=== PATIENT | female | born 1945 | race Caucasian/White ===

== ENCOUNTER → 2017-01-09 | Outpatient (CLI) | payer MEDICARE, MEDICAID ==
[~2017-01-09] MED LIST: ALBU8.5H3 INH; ASPI-496 PO; ATEN1TAB3 PO; BUPR100T8 PO; CYCL-259 PO; ESCI10TA PO; GABA-826 PO; HYDR-3138 PO; HYDR-3144 PO; HYDR-3240 PO; HYDR-3307 PO; IBUP200C8 PO; IBUP200T64 PO; LEVO125T5 PO; LEVO137T3 PO; LOVA10TA PO; MOME13HF2 INH; MULT-658 PO; POTA20TA91 PO; PT TO BRING DOS; TIZA4TAB PO; TRAM-28 PO; VITA150T PO
[2017-01-09 13:05] LABS: ASPARTATE AMINO TRANSFERASE 23 U/L (15-37); BLOOD UREA NITROGEN 19 mg/dL (7-18)
[2017-01-09 13:05] LABS: PATH.CAST-FLAG NOT PRESENT; SPERM-FLAG NOT PRESENT; SRC-FLAG NOT PRESENT; XTAL-FLAG NOT PRESENT; YLC-FLAG NOT PRESENT
[2017-01-09 13:40] LABS: HIV 1&2 ANTIBODY SCREEN Nonreactive (Nonreactive); HIV-1 p24 ANTIGEN Nonreactive (Nonreactive)
== END | disposition home or self-care (01) ==
LOC: STAR 11:12
PROVIDERS: ATTEND Orthopaedic Surgery
DX: Z01.818 Encounter for other preprocedural examination (principal); R94.31 Abnormal electrocardiogram [ECG] [EKG]; M17.12 Unilateral primary osteoarthritis, left knee; E87.6 Hypokalemia; J45.909 Unspecified asthma, uncomplicated
CPT/HCPCS: 36415; 80053; 81001; 85025; 86703; 87081; 87086; 87899; 93005; G0435

== ENCOUNTER → 2017-08-26 | Outpatient (CLI) | payer MEDICARE, MEDICAID ==
[~2017-08-26] MED LIST changes: -ALBU8.5H3 INH; +ALBU8.5H8 INH; -HYDR-3138 PO; -HYDR-3144 PO; +HYDR-3237 PO; +HYDR-3245 PO; +OXYC1TAB8 PO; -TRAM-28 PO; +TRAM-47 PO
== END ==
LOC: CFH 07:52
PROVIDERS: ATTEND Family Medicine
DX: K43.9 Ventral hernia without obstruction or gangrene (principal)
CPT/HCPCS: 76705

== ENCOUNTER → 2018-03-04 | Outpatient (CLI) | payer MEDICARE, MEDICAID | END | disposition home or self-care (01) | LOC: RAD 14:38 | PROVIDERS: ATTEND Family Medicine | DX: M79.89 Other specified soft tissue disorders (principal); F17.200 Nicotine dependence, unspecified, uncomplicated; Z88.5 Allergy status to narcotic agent ==

== ENCOUNTER → 2018-10-27 | Outpatient (CLI) | payer MEDICARE, MEDICAID | END | disposition home or self-care (01) | LOC: RAD 13:10 | PROVIDERS: ATTEND Family Medicine | DX: M16.12 Unilateral primary osteoarthritis, left hip (principal); M85.89 Other specified disorders of bone density and structure, multiple sites; M47.816 Spondylosis without myelopathy or radiculopathy, lumbar region; Z96.652 Presence of left artificial knee joint | CPT/HCPCS: 71046 ==

== ENCOUNTER → 2019-08-25 | Outpatient (CLI) | payer MEDICARE, MEDICAID ==
[~2019-08-25] MED LIST changes: -HYDR-3307 PO; +HYDR-36 PO; -TIZA4TAB PO; +TIZA4TAB2 PO
== END | disposition home or self-care (01) ==
LOC: CFH 10:25
PROVIDERS: ATTEND Nurse Practitioner
DX: Z13.820 Encounter for screening for osteoporosis (principal); M85.88 Other specified disorders of bone density and structure, other site; G95.89 Other specified diseases of spinal cord
CPT/HCPCS: 77080

== ENCOUNTER → 2021-02-08 | Outpatient (CLI) | payer MEDICARE, MEDICAID ==
[~2021-02-08] MED LIST changes: +BACL5TAB PO; -CYCL-259 PO; +CYCL10TA2 PO; +DICL75TA3 PO; +DULO30CA2 PO; -ESCI10TA PO; +ESCI10TA97 PO; +GABA300C PO; +HYDR-2214 PO; -HYDR-3240 PO; -HYDR-3245 PO; +HYDR-3248 PO; -HYDR-36 PO; +HYDR1TAB53 PO; +LOSA25TA25 PO; +MIRA50TA PO; +MIRT15TA94 PO
[2021-02-08 12:45] LABS: MICROSCOPIC NOT IND
[2021-02-08 12:57] LABS: ANION GAP 3 mmol/L (5-15); CALCIUM 9.2 mg/dL (8.5-10.1); CHLORIDE 106 mmol/L (98-107); INTERNATIONAL NORMALIZED RATIO 1.02 (0.93-1.1); PROTHROMBIN TIME 10.9 Seconds (9.6-11.5)
[2021-02-08 12:58] LABS: CREATININE 0.76 mg/dL (0.55-1.02)
[2021-02-08 13:02] LABS: BASOPHILS % (AUTO) 1 % (0-1); EOSINOPHILS % (AUTO) 6 % (1-7); LYMPHOCYTES % (AUTO) 21 % (22-44); MEAN CORPUSCULAR HEMOGLOBIN 31.9 pg (27.0-34.8); MEAN CORPUSCULAR HGB CONC 33.5 g/dL (32.4-35.8); MEAN PLATELET VOLUME 9.8 fL (7.4-10.4); MONOCYTES % (AUTO) 9 % (2-9); NEUTROPHILS % (AUTO) 63 % (42-75); PLATELET COUNT 251 x10^3/uL (130-400); RED BLOOD COUNT 4.49 x10^6/uL (3.82-5.3); RED CELL DISTRIBUTION WIDTH 14.3 % (9.6-15.2)
[2021-02-08 15:21] LABS: ALANINE AMINOTRANSFERASE 38 U/L (12-78); ALBUMIN 3.4 g/dL (3.4-5.0)
[2021-02-08 15:24] LABS: ALKALINE PHOSPHATASE 151 U/L (45-117); BILIRUBIN,TOTAL 0.3 mg/dL (0.2-1.0); TOTAL PROTEIN 7.5 g/dL (6.4-8.2)
== END | disposition home or self-care (01) ==
LOC: STAR 11:14
PROVIDERS: ATTEND Neurological Surgery
DX: Z01.810 Encounter for preprocedural cardiovascular examination (principal); Z01.818 Encounter for other preprocedural examination; Z01.812 Encounter for preprocedural laboratory examination; Z01.811 Encounter for preprocedural respiratory examination; M54.2 Cervicalgia; M54.12 Radiculopathy, cervical region; R79.1 Abnormal coagulation profile; R82.90 Unspecified abnormal findings in urine; R94.31 Abnormal electrocardiogram [ECG] [EKG]; M48.02 Spinal stenosis, cervical region; M47.12 Other spondylosis with myelopathy, cervical region; I44.4 Left anterior fascicular block
CPT/HCPCS: 36415; 71046; 80053; 81003; 85025; 85610; 85730; 93005

== ENCOUNTER 2021-03-27 12:21 | Emergency (ER) | payer MEDICAID, MEDICARE ==
[~2021-03-27] VITALS: Ht 160 cm; Wt 95.0 kg
[~2021-03-27 12:21] MED LIST changes: +BUDE10.22 INH; +METH4TAB6 PO
--- NOTE | 2021-03-27 14:15 | NUR ---
DRILL PRESS HAND: PT TO ROOM FROM LOBBY.
--- NOTE | 2021-03-27 14:52 | NUR ---
ASSUMED CARE OF PATIENT. REPORT GIVEN FROM BARRIE HAGEN
[2021-03-27 15:04] LABS: MICROSCOPIC INDICATED
[2021-03-27 15:46] LABS: BASOPHILS % (AUTO) 1 % (0-1); EOSINOPHILS % (AUTO) 2 % (1-7); LYMPHOCYTES % (AUTO) 19 % (22-44); MEAN CORPUSCULAR HEMOGLOBIN 31.2 pg (27.0-34.8); MEAN CORPUSCULAR HGB CONC 33.7 g/dL (32.4-35.8); MONOCYTES % (AUTO) 10 % (2-9); NEUTROPHILS % (AUTO) 68 % (42-75); PLATELET COUNT 309 x10^3/uL (130-400); RED BLOOD COUNT 4.59 x10^6/uL (3.82-5.3); RED CELL DISTRIBUTION WIDTH 14.2 % (9.6-15.2)
[2021-03-27 15:51] LABS: ALBUMIN 3.1 g/dL (3.4-5.0); ANION GAP 7 mmol/L (5-15); CALCIUM 9.7 mg/dL (8.5-10.1); CHLORIDE 102 mmol/L (98-107); CREATININE 0.93 mg/dL (0.55-1.02)
--- NOTE | 2021-03-27 16:08 | NUR ---
DR DALEY IN ROOM UPDATING PATIENT.
[2021-03-27] MEDS ORDERED: CEFTRIAXONE 1,000 MG in DEXTROSE 5% 50 ML IVPB ONE (16:30)
[2021-03-27 17:19] VITALS: BP 170/86
== END 2021-03-27 17:22 | disposition home or self-care (01) ==
LOC: ED 16:20
DX: N30.00 Acute cystitis without hematuria (principal); I10 Essential (primary) hypertension; F17.200 Nicotine dependence, unspecified, uncomplicated
CPT/HCPCS: 36415; 80048; 81001; 82040; 85025; 87077; 87086; 96365; 99284; J0696; 87186